=== PATIENT | female | born 1950 | race Two or more races ===

== ENCOUNTER 2023-09-28 16:27 | Inpatient (IN) | payer MEDICAID, OTHER ==
[~2023-09-28] VITALS: Ht 149.9 cm; Wt 63.4 kg
[2023-09-28 17:19] LABS: Basophils # (auto) 0 10 ^3/uL (0-0.2); Eosinophils # (auto) 0 10 ^3/uL (0-0.8); Monocytes # (auto) 0.4 10 ^3/uL (0-1.3); Neutrophils # (auto) 6.5 10 ^3/uL (1.6-8.6)
[2023-09-28 17:21] LABS: Basophils % (auto) 0.1 % (0.0-2.0); Hematocrit 31.9 % (36.0-46.0); Hemoglobin 11.1 g/dL (12.2-16.2); Lymphocytes % (auto) 12.6 % (10.0-50.0); Mean Corpuscular Hemoglobin 33.7 pg (28.0-32.0); Mean Corpuscular Hgb Conc. 34.9 g/dL (32.0-36.0); Mean Corpuscular Volume 96.7 fL (80.0-100.0); Monocytes % (auto) 5.6 % (0.0-12.0); Neutrophils % (auto) 81.7 % (37.0-80.0); Red Cell Distribution Width 12.4 % (11.8-14.3)
[2023-09-28 17:41] VITALS: PULSE 96; RESP 28; O2SAT 95
[2023-09-28 17:46] LABS: Alanine Aminotransferase 18 U/L (7-40); Alkaline Phosphatase 190 U/L (46-116); Anion Gap 8 (5-15); Aspartate Aminotransferase 21 U/L (13-40); BUN/Creatinine Ratio 33.9 (10.0-20.0); Blood Urea Nitrogen 20 mg/dL (9-23); Calcium 9.7 mg/dL (8.7-10.4); Carbon Dioxide 25 mmol/L (20-30); Chloride 103 mmol/L (98-107); Glucose 191 mg/dL (74-106); Potassium 3.6 mmol/L (3.5-5.1); Sodium 136 mmol/L (136-145)
[2023-09-28 17:47] LABS: Albumin 3.7 g/dL (3.2-4.8); Bilirubin, Total 1.2 mg/dL (0.2-1.0); Total Protein 7.4 g/dL (5.7-8.2)
[2023-09-28 18:28] LABS: COVID19 ANTIGEN SOFIA FIA NEGATIVE (NEGATIVE)
[2023-09-28 20:15] VITALS: PULSE 96; RESP 22; O2SAT 94
[2023-09-28] MEDS: ACETAMINOPHEN 500 MG TAB PO ONE (20:50)
[2023-09-28 21:54] LABS: Urine Bacteria MANY /hpf (None Seen); Urine Blood 3+ /uL (Negative); Urine Clarity Turbid (Clear); Urine Color Yellow (Yellow); Urine Mucus FEW (None Seen); Urine Protein, UAD 1+ (Negative); Urine Specific Gravity 1.021 (1.001-1.035); Urine Sperm PRESENT /hpf (None Seen); Urine Urobilinogen 12 mg/dL (Negative); Urine WBC 814 /hpf (0 - 5)
[2023-09-28] MEDS: IOHEXOL 350 MG/ML 100ML IJ ONE (22:30)
[2023-09-28] MEDS ORDERED: DEXTROSE (50%) 50ML SYRG IV PRN (23:00)
[2023-09-28] MEDS ORDERED: ACETAMINOPHEN 325 MG TAB PO PRN (23:00)
[2023-09-28] MEDS ORDERED: DOCUSATE SOD 100 MG CAP PO PRN (23:00)
[2023-09-28] MEDS ORDERED: ONDANSETRON HCL 4 MG/2 ML VIAL IV PRN (23:00)
[2023-09-28] MEDS ORDERED: HYDROcodone-ACET 5/325MG TAB PO PRN (23:00)
[2023-09-28] MEDS: cefTRIAXone 1GM/50ML D5W 50 ML IV ONE (23:31)
[2023-09-28] MEDS ORDERED: NITROGLYCERIN 0.4 MG SL TAB SL PRN (23:45)
[2023-09-28] MEDS ORDERED: MORPHINE SULFATE INJ 2 MG/ml SYRG IV PRN (23:45)
[2023-09-29] MEDS: SODIUM CHLORIDE 0.9% 500 ML IV ONE (00:13)
[2023-09-29] MEDS: MIDODRINE HCL 10 MG TAB PO ONE (02:38)
[2023-09-29 06:12] LABS: Basophils # (auto) 0 10 ^3/uL (0-0.2); Eosinophils # (auto) 0 10 ^3/uL (0-0.8); Hemoglobin 10.5 g/dL (12.2-16.2); Mean Corpuscular Hemoglobin 34.4 pg (28.0-32.0); White Blood Cell 6.4 10^3/uL (4.4-10.8)
[2023-09-29 06:17] LABS: Basophils % (auto) 0.1 % (0.0-2.0); Eosinophils % (auto) 0.2 % (0.0-7.0); Hematocrit 29.6 % (36.0-46.0); Lymphocytes # (auto) 0.8 10 ^3/uL (0.4-5.4); Lymphocytes % (auto) 13.3 % (10.0-50.0); Mean Corpuscular Hgb Conc. 35.5 g/dL (32.0-36.0); Monocytes # (auto) 0.5 10 ^3/uL (0-1.3); Monocytes % (auto) 7.1 % (0.0-12.0); Neutrophils % (auto) 79.3 % (37.0-80.0); Red Blood Cells 3.05 10^6/uL (4.0-5.20); Red Cell Distribution Width 12.4 % (11.8-14.3)
[2023-09-29 06:46] LABS: Alanine Aminotransferase 14 U/L (7-40); Albumin 3.2 g/dL (3.2-4.8); Alkaline Phosphatase 149 U/L (46-116); Anion Gap 7 (5-15); Aspartate Aminotransferase 17 U/L (13-40); Bilirubin, Total 0.9 mg/dL (0.2-1.0); Blood Urea Nitrogen 15 mg/dL (9-23); Calcium 9.3 mg/dL (8.7-10.4); Carbon Dioxide 26 mmol/L (20-30); Chloride 106 mmol/L (98-107); Glucose 141 mg/dL (74-106); Potassium 3.5 mmol/L (3.5-5.1); Sodium 139 mmol/L (136-145); Total Protein 6.8 g/dL (5.7-8.2)
[2023-09-29 07:11] LABS: BUN/Creatinine Ratio 25.4 (10.0-20.0)
[2023-09-29 08:00] VITALS: PULSE 70
[2023-09-29 08:35] VITALS: BP 110/52; PULSE 73; RESP 18; TEMP 98.7; O2SAT 97
[2023-09-29] MEDS: MIDODRINE HCL 10 MG TAB PO SCH (11:50)
[2023-09-29] MEDS: ACCU-CHEK COMFORT CURVE STRIP VI SCH (11:50)
[2023-09-29] MEDS: InsuLIN REG 1unit/0.01ml Soln (100units/ml) SC SCH (11:59)
[2023-09-29 12:45] VITALS: BP 116/59; PULSE 80; RESP 18; TEMP 98.8; O2SAT 98
[2023-09-29] MEDS: SODIUM CHLORIDE 0.9% 1,000 ML IV SCH (13:21)
[2023-09-29 16:35] VITALS: BP 147/70; PULSE 83; RESP 22; TEMP 99.7; O2SAT 98
[2023-09-29 20:00] VITALS: PULSE 82; PULSE 92; RESP 18; O2SAT 94
[2023-09-29 21:00] VITALS: BP 122/63; PULSE 84; RESP 18; TEMP 98.6; O2SAT 94
[2023-09-29] MEDS: cefTRIAXone 1GM/50ML D5W 50 ML IV SCH (21:06)
[2023-09-30] VITALS (7 sets, daily range): BP systolic 121–158; BP diastolic 54–67; PULSE 66–78; RESP 15–18; TEMP 97.8–98.6; O2SAT 96–99
[2023-10-01 00:46] VITALS: BP 152/56; PULSE 70; RESP 16; TEMP 98.3; O2SAT 99
[2023-10-01 05:00] VITALS: BP 145/59; PULSE 78; RESP 16; TEMP 97.5; O2SAT 97
[2023-10-01 08:00] VITALS: PULSE 82; RESP 18; O2SAT 98
[2023-10-01 08:47] VITALS: BP 131/45; PULSE 80; RESP 14; TEMP 98.2; O2SAT 95
[2023-10-01 13:00] VITALS: BP 129/47; PULSE 74; RESP 18; TEMP 97.6; O2SAT 97
[2023-10-01] MEDS ORDERED: CIPR-173 PO (13:05)
[2023-10-01 13:57] VITALS: BP 129/47; PULSE 74; RESP 18; TEMP 36.8; O2SAT 97
== END 2023-10-01 15:55 | disposition home or self-care (01) | DRG 720 ==
LOC: ER 16:27 → TELE 23:35 → TELE-WESTW 09-29 06:49
PROVIDERS: ADMIT Nurse Practitioner Family; ATTEND Family Medicine
DX: A41.9 Sepsis, unspecified organism (principal); G93.41 Metabolic encephalopathy; D64.9 Anemia, unspecified; E11.65 Type 2 diabetes mellitus with hyperglycemia; E86.0 Dehydration; N39.0 Urinary tract infection, site not specified; Z20.822 Contact with and (suspected) exposure to COVID-19; Z79.4 Long term (current) use of insulin; Z79.899 Other long term (current) drug therapy; B96.1 Klebsiella pneumoniae [K. pneumoniae] as the cause of diseases classified elsewhere
CPT/HCPCS: 36415; 71045; 71275; 80053; 81001; 82962; 83605; 84484; 85025; 85379; 87040; 87086; 87088; 87186; 87426; 93005; G0378; J1815